=== PATIENT | male | born 1965 | race Two or more races ===

== ENCOUNTER 2022-07-15 11:25 | Emergency (ER) | payer OTHER ==
[~2022-07-15] VITALS: Ht 180.3 cm; Wt 84.4 kg
[2022-07-15] MEDS ORDERED: OSEL75CA PO (16:15)
[2022-07-15] MEDS ORDERED: PEPCID AC20 MG PO (16:15)
[2022-07-15] MEDS ORDERED: INTESTINEX680 M1 PO (16:15)
== END 2022-07-15 16:23 ==
LOC: ER 11:25
DX: J10.1 Influenza due to other identified influenza virus with other respiratory manifestations (principal); A08.4 Viral intestinal infection, unspecified; Z20.822 Contact with and (suspected) exposure to COVID-19